=== PATIENT | female | born 1960 | race Caucasian/White ===

== ENCOUNTER 2016-02-27 15:55 | Inpatient (IN) | payer OTHER ==
[~2016-02-27] VITALS: Ht 157.5 cm; Wt 49.2 kg
[~2016-02-27 15:55] MED LIST: VALTREX1000 MG PO
[2016-02-27 18:05] LABS: ADD MIUA? YES; BILIRUBIN MODERATE; BLOOD NEGATIVE; COLOR DK YELLOW ((YELLOW)); GLUCOSE (STRIP) NEGATIVE; KETONES >=80; LEUKOCYTES TRACE; NITRITE NEGATIVE; PROTEIN (STRIP) 100; SPECIFIC GRAVITY 1.037 (1.000-1.030)
[2016-02-27 18:21] LABS: EPITHELIAL CELLS NONE SEEN; MUCUS 3+; RED BLOOD CELLS NONE SEEN /HPF (0-5)
[2016-02-27 18:22] LABS: BACTERIA RARE; CASTS NONE SEEN /LPF; CRYSTALS NONE SEEN; UCUL ADDED? NO
[2016-02-27 18:23] LABS: HEMATOCRIT 34.6 % (36.0-46.0); MCH 29.7 PG (29.0-34.0); MCHC 33.8 G/DL (30.0-36.0); MCV 87.8 FL (83-99); MEAN PLAT.VOLUME 7.9 uM^3 (9.5-12.4); RBC DIS.WIDTH-CV 12.5 % (11.8-14.6); RBC DIS.WIDTH-SD 39.1 % (39-53); RED BLOOD COUNT 3.94 M/uL (3.80-5.20); WHITE BLOOD COUNT 14.4 K/uL (4.1-10.2)
[2016-02-27 18:26] LABS: PLATELET COUNT 667 K/uL (156-360)
[2016-02-27 18:33] LABS: CHLORIDE 100 mEq/L (99-109); POTASSIUM 4.1 mEq/L (3.7-5.4); SODIUM 136 mEq/L (136-147)
[2016-02-27 18:35] LABS: ICTOTEST NEGATIVE
[2016-02-27 18:36] LABS: GLUCOSE 111 mg/dL (70-99)
[2016-02-27 18:37] LABS: ANION GAP 15 MEQ/L (2-14)
[2016-02-27 18:38] LABS: TOTAL BILIRUBIN 0.4 mg/dL (0.0-1.0)
[2016-02-27 18:39] LABS: ALKALINE PHOSPHATASE 56 IU/L (3-129); GFR ESTIMATE (CALCULATED) > 59 mL/min/
[2016-02-27 18:40] LABS: UREA NITROGEN (BUN) 16 mg/dL (9-23)
[2016-02-27] MEDS ORDERED: MICRO-K10 ME2 PO (21:55)
[2016-02-27] MEDS ORDERED: LASIX20 MG PO (21:56)
[2016-02-27] MEDS ORDERED: SYMBICORT60 INHALAT IH (21:56)
[2016-02-27] MEDS ORDERED: ZANTAC150 MG PO (21:56)
[2016-02-27 23:18] LABS: INTERNAL CONTROL VALID? YES
[2016-02-27 23:48] LABS: C DIFF TOXIN NEGATIVE (NEGATIVE)
[2016-02-27 23:50] LABS: PROBE CHECK PASS; SPECIMEN PROCESSING CONTROL PASS
[2016-02-28] VITALS (8 sets, daily range): BP systolic 102–134; BP diastolic 56–72
[2016-02-28 07:18] LABS: HEMATOCRIT 28.2 % (36.0-46.0); MCH 29.2 PG (29.0-34.0); MCV 88.4 FL (83-99); RBC DIS.WIDTH-CV 12.9 % (11.8-14.6); RBC DIS.WIDTH-SD 41.8 % (39-53); RED BLOOD COUNT 3.19 M/uL (3.80-5.20)
[2016-02-28 07:19] LABS: WHITE BLOOD COUNT 9.2 K/uL (4.1-10.2)
[2016-02-28 07:38] LABS: ANION GAP 13 MEQ/L (2-14); C-REACTIVE PROTEIN 90.4 MG/L (0-10); CHLORIDE 104 MEQ/L (99-109); GFR ESTIMATE (CALCULATED) > 59 mL/min/; GLUCOSE 101 mg/dL (70-99); POTASSIUM 4.5 MEQ/L (3.7-5.4); SAMPLE HEMOLYSIS CHECK 0; SAMPLE ICTERIC CHECK 0; SAMPLE LIPEMIA CHECK 0; SODIUM 137 MEQ/L (136-147); UREA NITROGEN (BUN) 13 mg/dL (9-23)
[2016-02-28 08:15] LABS: MEAN PLAT.VOLUME 8.1 uM^3 (9.5-12.4)
[2016-02-28 08:19] LABS: PLATELET COUNT 460 K/uL (156-360)
[2016-02-28 11:39] LABS: ERTH.SED.RATE 42 MM/HR (0-30)
[2016-02-29 04:08] VITALS: BP 134/77
[2016-02-29 06:47] LABS: EOSINOPHIL (%) 0 % (0-5); HEMATOCRIT 27.3 % (36.0-46.0); IMMATURE GRANULOCYTE (%) 0.8 % (0.0-0.7); IMMATURE GRANULOCYTE COUNT 0.1 K/uL; LYMPHOCYTE COUNT 0.6 K/uL (1.0-2.8); MCH 29.4 PG (29.0-34.0); MCHC 33.3 G/DL (30.0-36.0); MCV 88.1 FL (83-99); MEAN PLAT.VOLUME 8.3 uM^3 (9.5-12.4); MONOCYTE (%) 12.1 % (3-12); MONOCYTE COUNT 1.4 K/uL (0-0.8); NEUTROPHIL (%) 81.5 % (45-76); NEUTROPHIL COUNT 9.3 K/uL (1.8-6.4); PLATELET COUNT 514 K/uL (156-360); RBC DIS.WIDTH-CV 12.9 % (11.8-14.6); RBC DIS.WIDTH-SD 42.1 % (39-53); WHITE BLOOD COUNT 11.4 K/uL (4.1-10.2)
[2016-02-29 07:11] LABS: ANION GAP 10 MEQ/L (2-14); CHLORIDE 106 MEQ/L (99-109); GFR ESTIMATE (CALCULATED) > 59 mL/min/; GLUCOSE 119 mg/dL (70-99); POTASSIUM 4.1 MEQ/L (3.7-5.4); SAMPLE HEMOLYSIS CHECK 0; SAMPLE ICTERIC CHECK 0; SAMPLE LIPEMIA CHECK 0; SODIUM 136 MEQ/L (136-147); UREA NITROGEN (BUN) 12 mg/dL (9-23)
[2016-02-29 07:12] LABS: ANION GAP 8 MEQ/L (2-14); CHLORIDE 107 MEQ/L (99-109); GFR ESTIMATE (CALCULATED) > 59 mL/min/; GLUCOSE 120 mg/dL (70-99); POTASSIUM 4.2 MEQ/L (3.7-5.4); SAMPLE HEMOLYSIS CHECK 0; SAMPLE ICTERIC CHECK 0; SAMPLE LIPEMIA CHECK 0; SODIUM 137 MEQ/L (136-147); UREA NITROGEN (BUN) 12 mg/dL (9-23)
[2016-02-29 07:16] LABS: ALKALINE PHOSPHATASE 37 IU/L (3-129); TOTAL BILIRUBIN 0.2 MG/DL (0.0-1.0)
[2016-02-29 08:00] VITALS: BP 129/58
[2016-02-29 12:00] VITALS: BP 115/57
[2016-02-29 16:00] VITALS: BP 111/53
[2016-02-29 19:47] VITALS: BP 102/58
[2016-02-29 22:55] VITALS: BP 126/69
[2016-03-01 07:26] LABS: ALKALINE PHOSPHATASE 40 IU/L (3-129); ANION GAP 11 MEQ/L (2-14); CHLORIDE 104 MEQ/L (99-109); GFR ESTIMATE (CALCULATED) > 59 mL/min/; GLUCOSE 112 mg/dL (70-99); SAMPLE HEMOLYSIS CHECK 0; SAMPLE ICTERIC CHECK 0; SAMPLE LIPEMIA CHECK 0; SODIUM 138 MEQ/L (136-147); UREA NITROGEN (BUN) 12 mg/dL (9-23)
[2016-03-01 07:32] LABS: TOTAL BILIRUBIN 0.3 MG/DL (0.0-1.0)
[2016-03-01 07:55] VITALS: BP 131/58
[2016-03-01 08:13] LABS: HEMATOCRIT 29.1 % (36.0-46.0); MCH 30.1 PG (29.0-34.0); MCHC 33.7 G/DL (30.0-36.0); MCV 89.3 FL (83-99); RBC DIS.WIDTH-CV 13.2 % (11.8-14.6); RED BLOOD COUNT 3.26 M/uL (3.80-5.20); WHITE BLOOD COUNT 10.4 K/uL (4.1-10.2)
[2016-03-01 08:50] LABS: MEAN PLAT.VOLUME 9.3 uM^3 (9.5-12.4); PLATELET COUNT 563 K/uL (156-360)
[2016-03-01 17:00] VITALS: BP 99/62
[2016-03-01 23:47] VITALS: BP 122/58
[2016-03-02 03:42] VITALS: BP 105/54
[2016-03-02 07:09] LABS: NRBC (%) 0.4 /100 WBC (0-0)
[2016-03-02 07:19] LABS: EOSINOPHIL (%) 0 % (0-5); HEMATOCRIT 34.6 % (36.0-46.0); IMMATURE GRANULOCYTE (%) 4.3 % (0.0-0.7); IMMATURE GRANULOCYTE COUNT 0.7 K/uL; LYMPHOCYTE COUNT 1.3 K/uL (1.0-2.8); MCHC 32.4 G/DL (30.0-36.0); MCV 89.6 FL (83-99); MEAN PLAT.VOLUME 8.4 uM^3 (9.5-12.4); MONOCYTE (%) 9.3 % (3-12); MONOCYTE COUNT 1.4 K/uL (0-0.8); NEUTROPHIL (%) 77.6 % (45-76); NEUTROPHIL COUNT 11.8 K/uL (1.8-6.4); PLATELET COUNT 584 K/uL (156-360); RBC DIS.WIDTH-CV 13.3 % (11.8-14.6); RBC DIS.WIDTH-SD 43.2 % (39-53); RED BLOOD COUNT 3.86 M/uL (3.80-5.20)
[2016-03-02 07:20] LABS: WHITE BLOOD COUNT 15.2 K/uL (4.1-10.2)
[2016-03-02 07:32] LABS: ALKALINE PHOSPHATASE 45 IU/L (3-129); ANION GAP 14 MEQ/L (2-14); CHLORIDE 103 MEQ/L (99-109); GFR ESTIMATE (CALCULATED) > 59 mL/min/; GLUCOSE 110 mg/dL (70-99); POTASSIUM 4.7 MEQ/L (3.7-5.4); SAMPLE HEMOLYSIS CHECK 0; SAMPLE ICTERIC CHECK 0; SAMPLE LIPEMIA CHECK 0; SODIUM 142 MEQ/L (136-147); TOTAL BILIRUBIN 0.3 MG/DL (0.0-1.0); UREA NITROGEN (BUN) 11 mg/dL (9-23)
[2016-03-02 08:03] LABS: HEMATOLOGY COMMENT 1 SMEAR COMPATIBLE
[2016-03-02 08:59] VITALS: BP 104/51
[2016-03-02 13:20] VITALS: BP 108/55
[2016-03-02] MEDS ORDERED: PREDNISONE20 MG PO (14:07)
[2016-03-02] MEDS ORDERED: DELZICOL400 M1 PO (14:11)
[2016-03-02 17:28] VITALS: BP 101/55
== END 2016-03-02 17:48 | disposition home or self-care (01) | DRG 392 ==
LOC: RME 15:55 → EME 15:55 → 5EAST 02-28 00:03 → EDOF 02-28 00:03 → 5EAST 02-28 01:13
PROVIDERS: Hospitalist; Internal Medicine Gastroenterology; Nurse Practitioner Adult Health; Nurse Practitioner Family
DX: K52.3 Indeterminate colitis (principal); K92.1 Melena; E83.51 Hypocalcemia; F43.23 Adjustment disorder with mixed anxiety and depressed mood; R63.0 Anorexia; K12.0 Recurrent oral aphthae; K14.0 Glossitis; Z87.891 Personal history of nicotine dependence
CPT/HCPCS: 74176; 80048; 80053; 80069; 81003; 83630; 84443; 85025; 85027; 85651; 86140; 86850; 86900; 86901; 87177; 87329; 87493; 87506; 99281; 99285; C9113; J0744; J2930; J7030; J7512; S0030

== ENCOUNTER 2016-03-15 17:10 | Inpatient (IN) | payer OTHER ==
[~2016-03-15] VITALS: Ht 157.5 cm; Wt 48.9 kg
[~2016-03-15 17:10] MED LIST changes: +DELZICOL400 M1 PO; +LASIX20 MG PO; +MICRO-K10 ME2 PO; +PREDNISONE20 MG PO; +SYMBICORT60 INHALAT IH; +ZANTAC150 MG PO
[2016-03-15] MEDS ORDERED: MAGNESIUM400 M1 PO (17:54)
[2016-03-15 18:16] LABS: INTER. NORMALIZED RATIO 1.1; PROTHROMBIN TIME 11.6 (9.2-11.2); PTT 27.5 (25-32)
[2016-03-15 18:23] LABS: CHLORIDE 103 mEq/L (99-109); POTASSIUM 3.4 mEq/L (3.7-5.4); SODIUM 135 mEq/L (136-147)
[2016-03-15 18:25] LABS: GLUCOSE 88 mg/dL (70-99)
[2016-03-15 18:26] LABS: ANION GAP 7 MEQ/L (2-14)
[2016-03-15 18:27] LABS: TOTAL BILIRUBIN 0.2 mg/dL (0.0-1.0)
[2016-03-15 18:29] LABS: ALKALINE PHOSPHATASE 62 IU/L (3-129); GFR ESTIMATE (CALCULATED) > 59 mL/min/
[2016-03-15 18:30] LABS: UREA NITROGEN (BUN) 10 mg/dL (9-23)
[2016-03-15 18:39] LABS: HEMATOCRIT 28.8 % (36.0-46.0); MCH 28.8 PG (29.0-34.0); MCHC 32.3 G/DL (30.0-36.0); MCV 89.2 FL (83-99); MEAN PLAT.VOLUME 8.4 uM^3 (9.5-12.4); PLATELET COUNT 380 K/uL (156-360); RBC DIS.WIDTH-CV 14.3 % (11.8-14.6); RBC DIS.WIDTH-SD 46.7 % (39-53); RED BLOOD COUNT 3.23 M/uL (3.80-5.20); WHITE BLOOD COUNT 6.2 K/uL (4.1-10.2)
[2016-03-15] MEDS ORDERED: DELTASONE20 M1 PO (20:16)
[2016-03-15] MEDS ORDERED: ZANTAC150 MG PO (20:17)
[2016-03-15 21:27] VITALS: BP 110/66
[2016-03-15 23:17] LABS: HEMATOCRIT 22.7 % (36.0-46.0)
[2016-03-15 23:45] VITALS: BP 93/56
[2016-03-16] VITALS (7 sets, daily range): BP systolic 82–148; BP diastolic 42–58
[2016-03-16 09:06] LABS: EOSINOPHIL (%) 0 % (0-5); HEMATOCRIT 23.5 % (36.0-46.0); IMMATURE GRANULOCYTE (%) 0.6 % (0.0-0.7); LYMPHOCYTE COUNT 0.7 K/uL (1.0-2.8); MCH 29.4 PG (29.0-34.0); MCHC 33.2 G/DL (30.0-36.0); MCV 88.7 FL (83-99); MEAN PLAT.VOLUME 8.3 uM^3 (9.5-12.4); MONOCYTE (%) 8.3 % (3-12); MONOCYTE COUNT 0.4 K/uL (0-0.8); NEUTROPHIL (%) 76.4 % (45-76); NEUTROPHIL COUNT 3.9 K/uL (1.8-6.4); PLATELET COUNT 285 K/uL (156-360); RBC DIS.WIDTH-CV 14.5 % (11.8-14.6); RBC DIS.WIDTH-SD 47.1 % (39-53); RED BLOOD COUNT 2.65 M/uL (3.80-5.20); WHITE BLOOD COUNT 5.1 K/uL (4.1-10.2)
[2016-03-16 09:45] LABS: ANION GAP 5 MEQ/L (2-14); CHLORIDE 109 MEQ/L (99-109); GFR ESTIMATE (CALCULATED) > 59 mL/min/; SAMPLE HEMOLYSIS CHECK 0; SAMPLE ICTERIC CHECK 0; SAMPLE LIPEMIA CHECK 0; SODIUM 137 MEQ/L (136-147); UREA NITROGEN (BUN) 7 mg/dL (9-23)
[2016-03-16 09:46] LABS: GLUCOSE 219 mg/dL (70-99); POTASSIUM 4.6 MEQ/L (3.7-5.4)
[2016-03-16 16:01] LABS: C DIFF TOXIN NEGATIVE (NEGATIVE)
[2016-03-16 16:03] LABS: PROBE CHECK PASS; SPECIMEN PROCESSING CONTROL PASS
[2016-03-16 17:09] LABS: HEMATOCRIT 25.2 % (36.0-46.0); MCH 28.5 PG (29.0-34.0); MCHC 31.7 G/DL (30.0-36.0); MCV 89.7 FL (83-99); MEAN PLAT.VOLUME 8.5 uM^3 (9.5-12.4); PLATELET COUNT 328 K/uL (156-360); RBC DIS.WIDTH-CV 14.6 % (11.8-14.6); RBC DIS.WIDTH-SD 48.2 % (39-53); RED BLOOD COUNT 2.81 M/uL (3.80-5.20)
[2016-03-16 17:15] LABS: EOSINOPHIL (%) 0 % (0-5); IMMATURE GRANULOCYTE COUNT 0.1 K/uL; LYMPHOCYTE COUNT 0.7 K/uL (1.0-2.8); MONOCYTE (%) 10.6 % (3-12); MONOCYTE COUNT 0.6 K/uL (0-0.8); NEUTROPHIL (%) 76.4 % (45-76); NEUTROPHIL COUNT 4.6 K/uL (1.8-6.4)
[2016-03-17] VITALS (8 sets, daily range): BP systolic 82–124; BP diastolic 52–61
[2016-03-17 07:52] LABS: EOSINOPHIL (%) 0 % (0-5); IMMATURE GRANULOCYTE COUNT 0.1 K/uL; LYMPHOCYTE COUNT 1.1 K/uL (1.0-2.8); MCH 28.7 PG (29.0-34.0); MCHC 32.3 G/DL (30.0-36.0); MCV 88.7 FL (83-99); MEAN PLAT.VOLUME 8.3 uM^3 (9.5-12.4); MONOCYTE (%) 10.5 % (3-12); MONOCYTE COUNT 0.8 K/uL (0-0.8); NEUTROPHIL (%) 75.1 % (45-76); PLATELET COUNT 325 K/uL (156-360); RBC DIS.WIDTH-CV 14.7 % (11.8-14.6); RBC DIS.WIDTH-SD 47.7 % (39-53); RED BLOOD COUNT 2.93 M/uL (3.80-5.20)
[2016-03-17 07:53] LABS: WHITE BLOOD COUNT 7.9 K/uL (4.1-10.2)
[2016-03-17 08:17] LABS: ANION GAP 7 MEQ/L (2-14); CHLORIDE 108 MEQ/L (99-109); GFR ESTIMATE (CALCULATED) > 59 mL/min/; GLUCOSE 112 mg/dL (70-99); SAMPLE HEMOLYSIS CHECK 0; SAMPLE ICTERIC CHECK 0; SAMPLE LIPEMIA CHECK 0; SODIUM 136 MEQ/L (136-147); UREA NITROGEN (BUN) 9 mg/dL (9-23)
[2016-03-18] VITALS (11 sets, daily range): BP systolic 86–117; BP diastolic 52–66
[2016-03-18 09:19] LABS: HEMATOCRIT 34.3 % (36.0-46.0); MCH 29.4 PG (29.0-34.0); MCHC 33.5 G/DL (30.0-36.0); MCV 87.7 FL (83-99); MEAN PLAT.VOLUME 8.7 uM^3 (9.5-12.4); PLATELET COUNT 251 K/uL (156-360); RBC DIS.WIDTH-CV 14.7 % (11.8-14.6); RBC DIS.WIDTH-SD 46.3 % (39-53); RED BLOOD COUNT 3.91 M/uL (3.80-5.20)
[2016-03-19 00:45] VITALS: BP 103/57
[2016-03-19 04:57] VITALS: BP 96/55
[2016-03-19 09:00] VITALS: BP 106/50
[2016-03-19] MEDS ORDERED: ONDANSETRON4 MG/2 ML PO (13:14)
[2016-03-19] MEDS ORDERED: DELTASONE20 M1 PO (13:14)
[2016-03-19] MEDS ORDERED: LOPERAMIDE2 MG PO (13:14)
== END 2016-03-19 17:45 | disposition home or self-care (01) | DRG 386 ==
LOC: EME 17:10 → RME 17:10 → 5EAST 19:19 → EDOF 19:19 → 5EAST 20:55
PROVIDERS: Family Medicine; Internal Medicine Gastroenterology; Physician Assistant
PROC: 30233N1 Transfusion of Nonautologous Red Blood Cells into Peripheral Vein, Percutaneous Approach (ICD-10-PCS; principal; 2016-03-17)
DX: K51.011 Ulcerative (chronic) pancolitis with rectal bleeding (principal); E87.1 Hypo-osmolality and hyponatremia; Z68.1 Body mass index [BMI] 19.9 or less, adult; E44.1 Mild protein-calorie malnutrition; D62 Acute posthemorrhagic anemia; E83.51 Hypocalcemia; E87.6 Hypokalemia; B00.9 Herpesviral infection, unspecified; F41.9 Anxiety disorder, unspecified; E86.0 Dehydration; Z87.891 Personal history of nicotine dependence
CPT/HCPCS: 74022; 80048; 80053; 80069; 81003; 85014; 85018; 85025; 85025 91; 85027; 85610; 85730; 86140; 86850; 86900; 86901; 86920; 87177; 87329; 87493; 87506; 93005; 99281; 99285; J0744; J2930; J7030; J7512; P9016; S0028; S0030